=== PATIENT | male | born 1995 | race Caucasian/White ===

== ENCOUNTER 2023-12-06 09:57 | Emergency (ER) | payer OTHER, SELFPAY ==
[2023-12-06 10:07] VITALS: BP 169/109; PULSE 106; RESP 20; TEMP 35.9; O2SAT 98; BMI 24.9
--- NOTE | 2023-12-06 12:10 | ED_ITS ---
HPI - Eye Problem General Chief complaint: Eye Problems Stated complaint: R eye irritation/Sore throat Time Seen by Provider: 12/06/23 12:10 Source: patient Mode of arrival: ambulatory Limitations: no limitations History of Present Illness ED Provider: LATONYA BROWN PA-C HPI Narrative: 28-year-old male with no significant past medical history presents to the emergency department with right eye irritation/pain beginning yesterday. He reports waking up yesterday morning with clear yellowish drainage from his right eye. States he noticed some redness and irritation to the eye itself throughout the day. He woke up this morning with crusting noted to his right eye. Admits his mom was recently diagnosed with strep throat and was seen in the ED for possible strep infection of the eye. He reports concern that he may have this. He does not wear corrective lenses. Has not been taking anything for this at home. Does not recall getting anything in the eye. Denies foreign body sensation . Denies vision changes. Denies fever, chills, nausea or vomiting. Denies pain with eye movements. Related Data Previous Rx's ?Medication ?Instructions ?Recorded erythromycin 5 mg/gram (0.5 %) eye 0.5 inch ophthalmic (eye) BID #3.5 12/06/23 ointment grams Allergies Allergy/AdvReac Type Severity Reaction Status Date / Time No Known Allergies Allergy Verified 12/06/23 10:10 Review of Systems Review of Systems: Constitutional: No fever, chills, fatigue, night sweats, weight changes ENT/Mouth: No ear pain, hearing loss, nasal congestion, sinus pain, rhinorrhea, sore throat Eyes: No eye swelling, vision changes, discharge, +eye redness Cardio: No chest pain, palpitations, RUVALCABA, orthopnea, peripheral edema Pulm: No SOB, cough, sputum, wheezing, dyspnea, hemoptysis GI: No nausea, vomiting, hematemesis, abdominal pain, diarrhea, constipation, hematochezia, melena : No irregular bleeding, dysuria, frequency, urgency, hesitancy, hematuria, flank pain, urinary flow changes, urinary incontinence or retention MSK: No back pain, neck pain, joint pain, myalgias Skin: No lesions, rashes Neuro: No weakness, numbness, paresthesias, LOC, dizziness, headache Psych: No anxiety/panic, depression, SI/HI, AH/VH All other systems reviewed and are negative. [facility] Past Medical History Attestation statement: The following information was validated with the patient. Source: old records reviewed and nursing notes reviewed Social History Social History Advance Directives: No Advance Directives Information Provided: Yes Advance Directives on File: No Physical Exam Vital Signs: Vital Signs: Last Vital Signs Temp 98.3 F 12/06/23 15:04 Pulse 86 12/06/23 15:04 Resp 92 H 12/06/23 15:04 BP 154/123 H 12/06/23 15:04 Pulse Ox 99 12/06/23 15:04 O2 Del Method Room Air 12/06/23 15:04 BMI result Body Mass Index 24.9 Const: General: cooperative, healthy appearing, comfortable and no acute distress Orientation/consciousness: patient oriented x3 Limitations: no limitations HEENT: Other: Posterior oropharynx without erythema or edema. No tonsillar exudates. No peritonsillar masses. Uvula midline. Controlling secretions and speaking in complete sentences. Head: Yes normal to inspection, Yes No palpable skull fracture present, Yes normocephalic and Yes atraumatic Eyes: Other: + VA 20/20 bilaterally. IOP OD 18. IOP O S 17. Right eye with noted conjunctival injection. On fluorescein/tetracaine examination, there is no reuptake to suggest abrasion or ulceration. No foreign body visualized. EOMs intact without pain. Periorbital: periorbital findings normal Pupils: Equal, round and reactive pupils present Direct Ophthalmoscopy: normal light reflex, no photophobia and no papilledema Resp: Effort & Inspection: normal respiratory effort and able to speak in complete sentences Auscultation: clear to auscultation bilaterally Cardio: Rate: regular rate Rhythm: regular rhythm Skin: General skin exam: no rashes or lesions noted Neuro: General: patient oriented x3 and gait normal Cranial nerves: Yes Equal, round and reactive pupils present Course Course Course Narrative: 1450-- Visual acuity noted to be 20/20 in both eyes. IOP OD 18. IOP OS 17. There is no concern for acute closure glaucoma. On fluorescein/tetracaine examination, there is no reuptake to suggest abrasion or ulceration. No foreign body visualized. EOMs intact without pain. Unlikely preorbital or orbital cellulitis. He has tested negative for Physical exam is consistent with bacterial conjunctivitis. Erythromycin ointment sent to pharmacy for treatment. Patient has remained stable throughout ED visit today. Discussed worrisome signs and symptoms and when to return to the ED. All questions answered at this time. Patient is agreeable with disposition and stable for discharge. Medications Administered Discontinued Medications Generic Name Dose Route Start Last Admin Trade Name Nehemiah PRN Reason Stop Dose Admin Fluorescein Sodium 1 strip 12/06/23 12:10 12/06/23 12:21 Fluorescein Sodium Strip EYE-RIGHT 12/06/23 12:11 1 strip ONCE ONE Administration Tetracaine HCl 1 drop 12/06/23 12:10 12/06/23 12:21 Tetracaine Hcl/Pf 0.5% Oph Estephanie 4 Ml Drops EYE-RIGHT 12/06/23 12:11 1 drop ONCE ONE Administration Medical Decision Making Medical Decision Making [facility] Narrative: 28-year-old male with no significant past medical history presents to the emergency department with right eye irritation/pain beginning yesterday. Patient nontoxic appearing and in no acute distress. On exam, VA 20/20 bilaterally. IOP OD 18. IOP OS 17. Right eye with noted conjunctival injection. On fluorescein/tetracaine examination, there is no reuptake to suggest abrasion or ulceration. No foreign body visualized. EOMs intact without pain. Posterior oropharynx WNL. Differential diagnosis includes bacterial conjunctivits, viral conjunctivitis. Lower suspicion for ocular FB, corneal abrasion, corneal ulceration. Unlikely acute angle closure glaucoma, strep throat, periorbital or orbital cellulitis. Unlikely strep pharyngitis. Plan for visual acuity, intra-ocular pressure, tetracaine/fluorescein examination, strep swab, and disposition. Differential Diagnosis Differential Diagnoses: The differential diagnosis associated with the presentation includes as above Admission/Observation Not indicated Lab Data [facility] Lab Attestation statement: I reviewed the patient's lab results. as above. Labs: Lab Results 12/06/23 Range/Units 12:49 S. pyogenes GrpA HUMBERTO Negative (Negative) External Record Review External record reviewed: Inpatient record Prescription Management I considered prescription management with: Antibiotic (Erythromycin eye ointment) Social Determinants Patient?s care significantly limited by Social Determinants of Health including: Other Social Determinant of Health Critical Care Time Critical Care Time Critical Care Time: No Discharge Plan Discharge Clinical Impression: Bacterial conjunctivitis Patient Disposition: Home, Self-Care Instructions: Conjunctivitis (ED) Additional Instructions: You tested negative for strep throat. Your physical exam today is consistent with bacterial conjunctivitis (eye infection). Treatment for this is with antibiotic eye ointment. Erythromycin as an antibiotic ointment that has been sent to your pharmacy. Apply this ointment to your lower lid and then close your eyes with distributes along the entire eye. Apply this twice daily for 7 days. You may take Tylenol and ibuprofen as needed for pain/discomfort. Follow-up with PCP as needed. Return with new or worsening symptoms. In the case of an emergency call 911. Prescriptions: New erythromycin 5 mg/gram (0.5 %) ointment 0.5 inch ophthalmic (eye) BID Qty: 3.5 0RF Referrals: Regina Ely MD [Primary Care Provider] - Interventions: ED Discharge Assessment Last Done: 12/06/23 15:04 Discharge Date/Time: 12/06/23 15:06 Print Language: Spanish
[2023-12-06] MEDS: Tetracaine HCl/PF 0.5% Oph Sol 4 ML DROPS 1 DROP EYE-RIGHT (12:21)
[2023-12-06] MEDS: Fluorescein Sodium STRIP 1 STRIP EYE-RIGHT (12:21)
[2023-12-06 14:23] LABS: IDNOW Serial# 08D9AD1C; Strep A Nucleic Acid Negative (Negative)
[2023-12-06 14:44] VITALS: BP 154/123; PULSE 86; RESP 92; TEMP 36.8; O2SAT 99
[2023-12-06 15:04] VITALS: BP 154/123; PULSE 86; RESP 92; TEMP 36.8; O2SAT 99
== END 2023-12-06 15:06 | disposition home or self-care (01) ==
PROVIDERS: Physician Assistant Medical; Emergency Provider Emergency Medicine; PCP Internal Medicine
DX: H10.9 Unspecified conjunctivitis (principal); H57.89 Other specified disorders of eye and adnexa
CPT/HCPCS: 87651; 99283